=== PATIENT | male | born 1990 | race Caucasian/White ===

== ENCOUNTER 2022-03-13 08:28 | Emergency (ER) | payer SELFPAY ==
[~2022-03-13] VITALS: Ht 170.2 cm; Wt 102.0 kg
[2022-03-13 08:52] VITALS: BP 186/100
[2022-03-13] MEDS ORDERED: CLIN-95 PO (09:02)
[2022-03-13] MEDS ORDERED: HYDR-2759 PO (09:02)
--- NOTE | 2022-03-13 09:03 | PHYS DOC ---
Past History Alcohol Use: Occasionally General Adult EDM: Chief Complaint: TOOTH ACHE OR PAIN HPI: HPI: 32-year-old male presents with dental problems. He has several bad teeth and had teeth are broken. He presents today because he has had swelling in the right lower as well as the left upper portions of his mouth last couple days. Is gotten worse in the last 24 hours. He has been taking Tylenol for pain without relief. He is concerned about infection. He is working on getting a dental referral from [facility]. He denies fever or chills. He has had no drainage that he knows of into the mouth. Review of Systems: Review of Systems: Constitutional: Denies fever or chills Eyes: Denies change in visual acuity HENT: Dental infection Respiratory: Denies cough or shortness of breath Cardiovascular: Denies chest pain or edema GI: Denies abdominal pain, nausea, vomiting, bloody stools or diarrhea : Denies dysuria Musculoskeletal: Denies back pain or joint pain Integument: Denies rash Neurologic: Denies headache, focal weakness or sensory changes Endocrine: Denies polyuria or polydipsia Lymphatic: Denies swollen glands Psychiatric: Denies depression or anxiety Allergies: Allergies: Allergies Coded Allergies Type Severity Reaction Last Updated Verified No Known Drug Allergies 03/13/22 No Physical Exam: PE: Constitutional: Well developed, well nourished, no acute distress, non-toxic appearance. [] HENT: Normocephalic, atraumatic, bilateral external ears normal, oropharynx moist, no oral exudates, nose normal. Poor dentition, swelling of the right gums as well as the upper left gums. No palpable abscess. [] Eyes: PERRLA, EOMI, conjunctiva normal, no discharge. [] Neck: Normal range of motion, no tenderness, supple, no stridor. [] Cardiovascular: Heart rate regular rhythm, no murmur [] Lungs & Thorax: Bilateral breath sounds clear to auscultation [] Abdomen: Bowel sounds normal, soft, no tenderness, no masses, no pulsatile masses. [] Skin: Warm, dry, no erythema, no rash. [] Back: No tenderness, no CVA tenderness. [] Extremities: No tenderness, no cyanosis, no clubbing, ROM intact, no edema. [] Neurologic: Alert and oriented X 3, normal motor function, normal sensory function, no focal deficits noted. [] Psychologic: Affect normal, judgement normal, mood normal. [] EKG: EKG: [] Radiology/Procedures: Radiology/Procedures: [] Heart Score: C/O Chest Pain: N/A Risk Factors: Risk Factors: DM, Current or recent (<one month) smoker, HTN, HLP, family history of CAD, obesity. Risk Scores: Score 0 - 3: 2.5% MACE over next 6 weeks - Discharge Home Score 4 - 6: 20.3% MACE over next 6 weeks - Admit for Clinical Observation Score 7 - 10: 72.7% MACE over next 6 weeks - Early Invasive Strategies Course & Med Decision Making: Course & Med Decision Making Pertinent Labs and Imaging studies reviewed. (See chart for details) The patient has obvious dental infection but no palpable abscess at this time. I will place him on clindamycin and give him a short course of [place] for pain. His pharmacy will not be able to fill these medications till tomorrow as well given his first dose in the emergency room. I stressed to the patient that he must try to get an appointment with a dentist to address this issue as soon as possible, hopefully this week even if he has to travel some distance to be seen. He is stable for discharge at this time. [] Mannie Disclaimer: Mannie Disclaimer: This electronic medical record was generated, in whole or in part, using a voice recognition dictation system. Departure Departure: Impression: Primary Impression: Infected dental caries Disposition: HOME / SELF CARE / HOMELESS Condition: STABLE Referrals: PCP,NO (PCP) Patient Instructions: Dental Abscess Scripts Clindamycin Hcl (CLINDAMYCIN HCL) 300 Mg Capsule 1 CAP PO TID for dental infection for 10 Days, #30 CAP Prov: ANGIE ESPARZA DO 03/13/22 Hydrocodone/Acetaminophen (Hydrocodone-Acetamin 5-325 mg) 1 Each Tablet 1-2 EACH PO Q6HRS PRN for PAIN, #20 TAB Prov: ANGIE ESPARZA DO 03/13/22 ANGIE ESPARZA DO Mar 13, 2022 09:03
[2022-03-13] MEDS: CLINDAMYCIN HCL 150 MG CAPSULE PO ONE (09:17)
[2022-03-13] MEDS: HYDROcodone/APAP 7.5/325MG 1 TAB TABLET PO ONE (09:17)
== END 2022-03-13 09:28 | disposition home or self-care (01) ==
LOC: ER 08:28
DX: K02.9 Dental caries, unspecified (principal)
CPT/HCPCS: 99283-25